=== PATIENT | female | born 1960 | race Caucasian/White ===

== ENCOUNTER 2017-06-18 09:22 | Emergency (ER) | payer OTHER ==
[2017-06-18 11:04] VITALS: BP 136/70
--- NOTE | 2017-06-18 11:52 | UC ---
Respiratory Complaint HPI - HPI Summary HPI Summary: 57 yo female with cough/post nasal drip and nasal congestion x greater than a week cough has kept her up past 2 nights facial pressure no f/c no cp or sob - History of Current Complaint Chief Complaint: UCRespiratory Stated Complaint: COUGH SORE THROAT Time Seen by Provider: 06/18/17 11:37 Hx Obtained From: Patient Hx Last Menstrual Period: GETTING DEPO SHOTS Onset/Duration: Gradual Onset, Lasting Days - >7 Timing: Constant Severity Initially: Moderate Severity Currently: Moderate Pain Intensity: 0 Pain Scale Used: 0-10 Numeric Character: Cough: Nonproductive Aggravating Factors: Nothing Alleviating Factors: Nothing Associated Signs And Symptoms: Positive: Nasal Congestion, Hoarseness, Sinus Discomfort - Allergies/Home Medications Allergies/Adverse Reactions: Allergies Allergy/AdvReac Type Severity Reaction Status Date / Time MS Sulfa Drugs [Sulfa Drugs] Allergy Intermediate Rash Verified 06/18/17 10:54 Home Medications: Home Medications Alendronate Sodium [Fosamax-] 1 tab PO WEEKLY 06/18/17 [History Confirmed ] PMH/Surg Hx/FS Hx/Imm Hx Previously Healthy: Yes - Surgical History Surgical History: None - Social History Alcohol Use: Occasionally Substance Use Type: None Smoking Status (MU): Never Smoked Tobacco Review of Systems Constitutional: Fatigue Skin: Negative Eyes: Negative ENT: Ear Ache, Nasal Discharge, Sinus Congestion Respiratory: Cough Cardiovascular: Negative Gastrointestinal: Negative Genitourinary: Negative Motor: Negative Neurovascular: Negative Musculoskeletal: Negative Neurological: Negative Psychological: Negative Is Patient Immunocompromised?: No All Other Systems Reviewed And Are Negative: Yes Physical Exam Triage Information Reviewed: Yes Appearance: Well-Appearing, No Pain Distress, Well-Nourished Vital Signs: Initial Vital Signs Temp 97.3 F 06/18/17 10:59 Pulse 64 06/18/17 10:59 Resp 16 06/18/17 10:59 BP 136/70 06/18/17 10:59 Pulse Ox 98 06/18/17 10:59 ENT: Positive: Normal ENT inspection, Nasal congestion, Nasal drainage, TMs normal, Sinus tenderness - bilat max, Uvula midline. Negative: Tonsillar swelling, Tonsillar exudate, Trismus, Muffled voice, Hoarse voice, Dental tenderness Neck: Positive: Supple, Nontender Respiratory: Positive: Lungs clear, Normal breath sounds, No respiratory distress, No accessory muscle use Cardiovascular: Positive: RRR, No Murmur Abdomen Description: Positive: Nontender, No Organomegaly Bowel Sounds: Positive: Present Musculoskeletal: Positive: ROM Intact, No Edema Neurological: Positive: Alert Psychological Exam: Normal Skin Exam: Normal UC Diagnostic Evaluation - Laboratory O2 Sat by Pulse Oximetry: 98 - normal/not hypoxic Respiratory Course/Dx - Differential Dx/Diagnosis Provider Diagnoses: acute sinusitis Discharge - Discharge Plan Condition: Stable Disposition: HOME Prescriptions: Amoxicillin PO (*) [Amoxicillin 875 MG (*)] 875 mg PO BID #20 tab Benzonatate CAP* [Tessalon CAP*] 100 - 200 mg PO TID PRN #[id number] cap PRN Reason: Cough Patient Education Materials: Sinusitis (ED) Referrals: Raji Drake MD [Primary Care Provider] - 5 Days (if not better) Additional Instructions: warm facial compresses saline nasal spray
== END 2017-06-18 11:50 | disposition home or self-care (01) ==
LOC: UCEAST 09:22
DX: J01.90 Acute sinusitis, unspecified (principal); Z88.2 Allergy status to sulfonamides
CPT/HCPCS: 99212; G0463